=== PATIENT | male | born 1940 | race Caucasian/White ===

== ENCOUNTER 2021-06-05 07:36 | Outpatient (CLI) | payer MEDICARE, OTHER ==
[2021-06-05] MEDS ORDERED: Iopamidol 370 76% 100 ML VIAL ONE (15:36)
== END 2021-06-05 07:37 | disposition home or self-care (01) ==
LOC: CSHCT 07:36
PROVIDERS: ATTEND Specialist
DX: I70.1 Atherosclerosis of renal artery (principal); T82.858A Stenosis of other vascular prosthetic devices, implants and grafts, initial encounter; I72.3 Aneurysm of iliac artery; M48.54XA Collapsed vertebra, not elsewhere classified, thoracic region, initial encounter for fracture
CPT/HCPCS: 74174; 82565; Q9967